=== PATIENT | male | born 1995 | race Two or more races ===

== ENCOUNTER 2016-05-25 08:55 | Emergency (ER) | payer OTHER ==
[2016-05-25 09:00] VITALS: BP 119/75; PULSE 78; RESP 20; TEMP 98.4; O2SAT 96
--- NOTE | 2016-05-25 09:02 | EDPHY ---
H & P Stated Complaint: PERIODIC BREATHING/SOB WAKING HIM UP AT NIGHT X 3 DAYS Time Seen by Provider: 05/25/16 09:02 - Personal History Current Tetanus/Diphtheria Vaccine: Yes - Medical/Surgical History Hx Asthma: Yes Hx Chronic Respiratory Disease: No Hx Diabetes: No Hx Cardiac Disease: No Hx Renal Disease: No Hx Cirrhosis: No Hx Alcoholism: No Hx HIV/AIDS: No Hx Splenectomy or Spleen Trauma: No Other PMH: ASTHMA - Social History Smoking Status: Never smoked Constitutional: Initial Vital Signs Temperature (C) 36.9 C 05/25/16 08:58 Heart Rate 78 05/25/16 08:58 Respiratory Rate 20 05/25/16 08:58 Blood Pressure 119/75 05/25/16 08:58 O2 Sat (%) 96 05/25/16 08:58 O2 Delivery Mode Room Air Allergies/Adverse Reactions: No Known Allergies Allergy (Verified 05/25/16 08:57) Home Medications: Medication Instructions Recorded Albuterol [Ventolin Hfa Inhaler] 200 puffs IH Q4 #1 mdi 05/25/16 Budesonide 90 Mcg INH [Pulmicort 60 puffs IH BID #1 mdi 05/25/16 90 Mcg Flexhaler (*)] Ipratropium [Atrovent Hfa (*)] 200 puffs IH Q4WA #1 mdi 05/25/16 Medical Decision Making ED Course/Re-evaluation: CHIEF COMPLAINT: Shortness of breath HISTORY OF PRESENT ILLNESS: The patient is a 20 y/o male, with a history of asthma, complaining of difficulty breathing that wakes him from sleep for the last few days. He reports since arriving in the [place], he has not usually required his asthma medications while here. Upon assessment, he has persistent mild chest tightness, but feels improved since waking this morning. He does not have access to any of his medications here. He does clarify that he generally wakes from sleep gasping for air and then his symptoms improve after waking. He endorses snoring, but does not know if he has sleep apnea. He denies fever, sore throat, or other symptoms. REVIEW OF SYSTEMS: A 10 point review of systems was performed and is negative with the exception of the elements mentioned in the history of present illness. PHYSICAL EXAM: HR, BP, O2 Sat, RR. Temp noted General Appearance: Alert, well hydrated, appropriate, and non-toxic appearing. Obese. Head: Atraumatic without scalp tenderness or obvious injury Eyes: Pupils equal, round, reactive to light and accommodation, EOMI, no trauma , no injection. Ears: Clear bilaterally, no perforation, normal landmarks Nose: Atraumatic, no rhinorrhea, clear. Throat: There is no erythema or exudates, no lesions, normal tonsils, mucus membranes moist. Neck: Supple, nontender, no lymphadenopathy. Respiratory: No retractions, no distress, no wheezes, and no accessory muscle use. Lungs are clear to auscultation bilaterally. Cardiovascular: Regular rate and rhythm, no murmurs, rubs, or gallops. Good capillary refill all extremities. Gastrointestinal: Abdomen is soft, nontender, non-distended, no masses, no rebound, no guarding, no peritoneal signs. Musculoskeletal: Normal active ROM of all extremities, atraumatic. Neurological: Alert, appropriate, and interactive. The patient has normal DTRs and non-focal cranial nerves, motor, sensory, and cerebellar exam. Skin: No rashes, good turgor, no nodules on palpation. Back acne. Past medical history: Asthma, obesity Past surgical history: denies Family history: noncontributory Social history: Recently returned from [facility]. [employer] student DIFFERENTIAL DIAGNOSIS: The differential diagnosis for the patient's shortness of breath included but was not limited to sleep apnea, asthma exacerbation, pneumonia, myocardial infarction, acute mountain sickness, high altitude pulmonary edema, congestive heart failure, and pulmonary embolus. MEDICAL DECISION MAKING: This is an obese 20 y/o male with a history of asthma presenting with multiple episodes of short-lived dyspnea that wake him from sleep. His asthma is usually controlled without medications while in [place] and he reports this dyspnea feels different as it is not persistent. His story is more consistent with obstructive sleep apnea rather than an asthma exacerbation. His lungs are clear. Plan for discharge with scripts for his inhalers and referral to pulmonology for follow up. Strict return precautions given. He is comfortable with this plan. Departure - Departure Disposition: Home, Routine, Self-Care Clinical Impression: Sleep apnea Qualifiers: Sleep apnea type: obstructive Qualified Code(s): G47.33 - Obstructive sleep apnea (adult) (pediatric) Asthma Qualifiers: Asthma severity: mild intermittent Asthma complication type: uncomplicated Qualified Code(s): J45.20 - Mild intermittent asthma, uncomplicated Condition: Good Instructions: Asthma (ED), Snoring (ED) Additional Instructions: 1. Use inhalers as prescribed when needed for persistent shortness of breath. 2. Follow up with a primary care provider or seconds handler to be evaluated for sleep apnea. 3. Return to the ED for any worsening of condition. Referrals: NONE *PRIMARY CARE P,. [Primary Care Provider] - As per Instructions [facility]] - As per Instructions Jono Batista MD [Medical Doctor] - As per Instructions Prescriptions: Albuterol [Ventolin Hfa Inhaler] 200 puffs IH Q4 #1 mdi Budesonide 90 Mcg INH [Pulmicort 90 Mcg Flexhaler (*)] 60 puffs IH BID #1 mdi Ipratropium [Atrovent Hfa (*)] 200 puffs IH Q4WA #1 mdi Report Scribed for: Josue Marks Report Scribed by: Cassidy Apodaca Date of Report: 05/25/16 Time of Report: 09:03
== END 2016-05-25 09:28 | disposition home or self-care (01) ==
DX: J45.20 Mild intermittent asthma, uncomplicated (principal); G47.33 Obstructive sleep apnea (adult) (pediatric)

== ENCOUNTER 2016-07-23 15:21 | Emergency (ER) | payer OTHER ==
[2016-07-23 15:27] VITALS: BP 145/70; PULSE 76; RESP 16; TEMP 97.9; O2SAT 95
--- NOTE | 2016-07-23 16:03 | EDPHY ---
H & P Time Seen by Provider: 07/23/16 15:55 HPI/ROS: CHIEF COMPLAINT: Rash on chest HISTORY OF PRESENT ILLNESS: Patient noticed slightly painful inflamed rash on his chest today. No fever. Crosses midline. No discharge. REVIEW OF SYSTEMS: No recent new contacts or soaps or lotions. No trouble breathing. PAST MEDICAL HISTORY: Asthma Social history: [employer] student General Appearance: Alert and conversant, cooperative. Folliculitis present on both sides of the patient's chest area approximately 10 x 10 cm. No abscess. No surrounding lymphangitis. Patient looks well and nontoxic Emergency Department course/MDM: Patient presents with folliculitis without abscess or systemic symptoms. I do not think this is likely to be zoster or allergic reaction. It is not itchy. Bactrim and Keflex, outpatient follow-up. Smoking Status: Never smoked Constitutional: Initial Vital Signs Temperature (C) 36.6 C 07/23/16 15:24 Heart Rate 76 07/23/16 15:24 Respiratory Rate 16 07/23/16 15:24 Blood Pressure 145/70 H 07/23/16 15:24 O2 Sat (%) 95 07/23/16 15:24 O2 Delivery Mode Room Air Allergies/Adverse Reactions: No Known Allergies Allergy (Verified 05/25/16 08:57) Home Medications: Medication Instructions Recorded Cephalexin [Keflex] 500 mg PO QID #28 cap 07/23/16 Sulfamethox/Tmp 800/160 mg 1 tab PO Q12 #14 tab 07/23/16 [Bactrim Ds] MDM/Departure - Depart Disposition: Home, Routine, Self-Care Clinical Impression: Folliculitis Condition: Good Instructions: Folliculitis (ED) Prescriptions: Cephalexin [Keflex] 500 mg PO QID #28 cap Sulfamethox/Tmp 800/160 mg [Bactrim Ds] 1 tab PO Q12 #14 tab Referrals: [facility] [Clinic] - As per Instructions
== END 2016-07-23 16:19 | disposition home or self-care (01) ==
DX: L73.9 Follicular disorder, unspecified (principal); J45.909 Unspecified asthma, uncomplicated

== ENCOUNTER 2016-08-29 19:53 | Emergency (ER) | payer OTHER ==
--- NOTE | 2016-08-29 20:25 | EDPHY ---
H & P Time Seen by Provider: 08/29/16 20:14 HPI/ROS: CHIEF COMPLAINT: Medication reaction HISTORY OF PRESENT ILLNESS: The patient is a 20-year-old male, on Doxycycline for 1 week for acne, presenting with medication reaction. While on the medication the patient developed light sensitivity and redness in both eyes. He felt more fatigued than usual and complained of a dry mouth. He stopped taking the medication two days ago. His eyes improved and his mouth no longer felt dry. He continues to feel more fatigued than usual. He states his acne has improved. He has no other complaints at this time. REVIEW OF SYSTEMS: A comprehensive 10 point review of systems is otherwise negative aside from elements mentioned in the history of present illness. Past Medical/Surgical History: Denies. Social History: [employer] student. Smoking Status: Never smoked Physical Exam: General Appearance: Alert, pleasant Eyes: Pupils equal and round, bilateral conjunctival injection, worse on left. ENT, Mouth: Mucous membranes moist Neck: Normal inspection Respiratory: Lungs are clear to auscultation Cardiovascular: Regular rate and rhythm Gastrointestinal: Abdomen is soft and non-tender Neurological: A&O, nonfocal, normal gait Skin: Warm and dry, no rash Extremities: Nontender, no pedal edema Psychiatric: Mood and affect normal Constitutional: Initial Vital Signs Temperature (C) 36.8 C 08/29/16 19:54 Heart Rate 84 08/29/16 19:54 Respiratory Rate 16 08/29/16 19:54 Blood Pressure 114/77 08/29/16 19:54 O2 Sat (%) 98 08/29/16 19:54 O2 Delivery Mode Room Air Allergies/Adverse Reactions: No Known Allergies Allergy (Verified 05/25/16 08:57) Home Medications: Medication Instructions Recorded Doxycycline Hyclate 08/29/16 Departure - Departure Disposition: Home, Routine, Self-Care Clinical Impression: Medication reaction Qualifiers: Encounter type: initial encounter Qualified Code(s): T88.7XXA - Unspecified adverse effect of drug or medicament, initial encounter Condition: Good Instructions: Antibiotic Medication Allergy (ED) Additional Instructions: Stop taking the Doxycycline. Followup with your dry house wheeler. You have been referred to a primary care physician below, please call to arrange a followup appointment as necessary. Referrals: Annette Allen MD [Medical Doctor] - As per Instructions (Primary Care Physician) Report Scribed for: Debby Green Report Scribed by: Rochelle Osorio Date of Report: 08/29/16 Time of Report: 20:25 Physician Review and Approval Statement: 08/29/16 20:25 Portions of this note were transcribed by a medical director/head team physician. I personally performed the history, physical exam, and medical decision-making; and confirmed the accuracy of the information in the transcribed note.
[2016-08-29 20:55] VITALS: BP 123/70; PULSE 88; RESP 20; TEMP 97.9; O2SAT 95
== END 2016-08-29 20:55 | disposition home or self-care (01) ==
DX: R53.83 Other fatigue (principal); T36.4X5A Adverse effect of tetracyclines, initial encounter
CPT/HCPCS: 82947-QW

== ENCOUNTER 2016-11-29 10:13 | Emergency (ER) | payer OTHER ==
[2016-11-29 10:19] VITALS: BP 109/56; PULSE 80; RESP 18; TEMP 97.9; O2SAT 96
--- NOTE | 2016-11-29 11:36 | EDPHY ---
H & P Time Seen by Provider: 11/29/16 10:45 HPI/ROS: CHIEF COMPLAINT: Left ankle injury HISTORY OF PRESENT ILLNESS: 21-year-old male presents to the emergency department with injury to his left ankle. The patient was playing soccer last night at 2300 and somehow rolled his left ankle. He tried to continue to play but complained of pain in his left ankle. Denies any other trauma or injury. ROS: Denies numbness or tingling in his toes, pain in his left calf or knee. Past Medical/Surgical History: Asthma Social History: [employer] student Smoking Status: Never smoked Physical Exam: Examination of the left ankle reveals mild swelling over the lateral malleolus. He has reproducible pain with palpation over the lateral malleolus and along the distal fibula. No palpable crepitus or other bony abnormality. No obvious ligament instability. Nontender to palpate over the medial malleolus. Full dorsi and plantar flexion. Calf is nontender. Achilles tendon is intact. Full range of motion of his left knee. Full range of motion of the right lower extremity. No abrasions or puncture wounds. Constitutional: Initial Vital Signs Temperature (C) 36.6 C 11/29/16 10:17 Heart Rate 80 11/29/16 10:17 Respiratory Rate 18 11/29/16 10:17 Blood Pressure 109/56 L 11/29/16 10:17 O2 Sat (%) 96 11/29/16 10:17 O2 Delivery Mode Room Air Allergies/Adverse Reactions: No Known Allergies Allergy (Verified 11/29/16 10:34) Home Medications: Medication Instructions Recorded NK [No Known Home Meds] 11/29/16 MDM/Departure - MDM Imaging Results: Imaging Impressions Ankle X-Ray 11/29/16 11:13 Impression: Negative. No acute fracture. Imaging: I viewed and interpreted images myself Procedures: Patient was placed in Velcro ankle stirrup splint and examined post application in good placement with normal MECHANICAL APPLICATIONS ENGINEER. ED Course/Re-evaluation: 21-year-old male presents to the emergency department with left ankle injury. X -rays reveal no fractures. He was placed in Velcro ankle stirrup splint and given orthopedic referral. - Depart Disposition: Home, Routine, Self-Care Clinical Impression: Left ankle sprain Qualifiers: Encounter type: initial encounter Involved ligament of ankle: unspecified ligament Qualified Code(s): S93.402A - Sprain of unspecified ligament of left ankle, initial encounter Condition: Good Instructions: Ankle Sprain (ED), Ankle Stirrup Splint (ED) Additional Instructions: Weightbear as tolerated. Ibuprofen 600 mg every 8 hours as needed for pain. Follow up with orthopedic surgeon in 1 week to recheck. Referrals: Aleksander Jimenes MD [Medical Doctor] - 5-7 days, call for appt. (Orthopedic surgeon on-call)
== END 2016-11-29 11:45 | disposition home or self-care (01) ==
DX: S93.402A Sprain of unspecified ligament of left ankle, initial encounter (principal); J45.909 Unspecified asthma, uncomplicated; X50.9XXA Other and unspecified overexertion or strenuous movements or postures, initial encounter; Y93.66 Activity, soccer

== ENCOUNTER 2016-12-11 22:55 | Emergency (ER) | payer OTHER ==
--- NOTE | 2016-12-11 23:38 | EDPHY ---
H & P Stated Complaint: L ankle inj Time Seen by Provider: 12/11/16 23:38 HPI/ROS: HPI: This is a 21-year-old male who presents with Chief Complaint: Left ankle injury Location: Left ankle Quality: Injury Duration: 30 minutes prior to arrival Signs and Symptoms: No bleeding, no radiation, no numbness, no weakness, no tingling, no incontinence, + decreased range of motion, + swelling, + pain Timing: Acute Severity: Moderate Context: Patient was playing soccer approximately 1 minute into the game; when he accidentally rolled his ankle; abdirizak it; he heard something snap and felt immediate pain. He is able to partially bear weight on his toe. He was seen in the emergency room 2 weeks ago with the exact same injury. He has not taken any [id number] medications or applied ice. He has increased pain with weight-bearing. He describes the pain is constant and moderate in nature. Modifying Factors: None Comment: ROS: see HPI Constitutional: No fever, no chills, no weight loss Eyes: No blurred vision Respiratory: No shortness of breath, no cough Cardiovascular: No chest pain Gastrointestinal: No nausea, no vomiting no diarrhea Genitourinary: No dysuria Extremities: No myalgias Neurologic: No weakness, no numbness Skin: No rashes Hematologic: No bruising, no bleeding MEDICAL/SURGICAL/SOCIAL HISTORY: Medical history: Asthma Surgical history: Denies Social history: College student CONSTITUTIONAL: Obese polite young adult male, awake and alert, no obvious distress HEENT: Atraumatic and normocephalic, PERRL, EOMI. Tympanic membranes clear. Oropharynx clear, no exudate and moist pink mucosa. Airway patent. No lymphadenopathy. No meningismus. Cardiovascular: Normal S1/S2, regular rate, regular rhythm, without murmur rub or gallop. PULMONARY/CHEST: Symmetrical and nontender. Clear to auscultation bilaterally. Good air movement. No accessory muscle usage. ABDOMEN: Soft, nondistended, nontender, no rebound, no guarding, no peritoneal signs, no masses or organomegaly. No CVAT. EXTREMITIES: 2/2 pulses, strength 5/5, Left Ankle; moderate soft tissue swelling over the medial malleolus; Plantar flexion to 50, dorsiflexion to 20 . Foot inversion to 35 degree. +pain Anterior talofibular ligament. + pain Calcaneofibular ligament, no pain posterior talofibular ligament, no pain posterior inferior tibiofibular ligament Achilles tendon intact. Light touch sensation intact. no deformities, no clubbing, no cyanosis or edema. NEUROLOGICAL: no focal neuro deficits. GCS 15. SKIN: Warm and dry, no erythema. no rash. Good capillary refill. Source: Patient Exam Limitations: No limitations - Personal History Current Tetanus/Diphtheria Vaccine: Yes Tetanus Vaccine Date: 2014 - Medical/Surgical History Hx Asthma: Yes Hx Chronic Respiratory Disease: No Hx Diabetes: No Hx Cardiac Disease: No Hx Renal Disease: No Hx Cirrhosis: No Hx Alcoholism: No Hx HIV/AIDS: No Hx Splenectomy or Spleen Trauma: No Other PMH: ASTHMA - Social History Smoking Status: Never smoked Constitutional: Initial Vital Signs Temperature (C) 36.6 C 12/11/16 22:58 Heart Rate 112 H 12/11/16 22:58 Respiratory Rate 18 12/11/16 22:58 Blood Pressure 131/60 H 12/11/16 22:58 O2 Sat (%) 96 12/11/16 22:58 O2 Delivery Mode Room Air Allergies/Adverse Reactions: No Known Allergies Allergy (Verified 12/11/16 23:00) Home Medications: Medication Instructions Recorded NK [No Known Home Meds] 11/29/16 Medical Decision Making - Diagnostics Imaging Results: Imaging Impressions Ankle X-Ray 12/11/16 23:04 Impression: Soft tissue swelling, with no acute fracture. Procedures: Procedure: Splint placement. A left ankle stirrup splint was applied by the Emergency Room avionics test technician. After application of the splint I returned and re-examined the patient. The splint was adequately immobilizing the joint and distal to the splint the patient's circulation and sensation was intact. ED Course/Re-evaluation: Left ankle x-ray ordered' show soft tissue swelling but no fracture. Given ibuprofen. Appears to be grade 2 sprain; 2nd occurrence Placed in ankle stirrup splint; given crutches; partial weight-bearing as tolerated; with orthopedic follow-up Rice therapy No signs of neurovascular compromise/tenting of skin/compartment syndrome/ extremities and joints examined above and below area of concern and are neurovascularly intact. Differential Diagnosis: ED differential diagnosis includes sprain, fracture, nerve injury, ligament injury. Departure - Departure Disposition: Home, Routine, Self-Care Clinical Impression: Grade 2 ankle sprain Qualifiers: Encounter type: initial encounter Laterality: left Qualified Code(s): S93.402A - Sprain of unspecified ligament of left ankle, initial encounter Condition: Good Instructions: Ankle Sprain (ED), Ankle Stirrup Splint (ED) Additional Instructions: Wear ankle splint continuously except at night while you sleep and to take a bath until pain free or you follow-up with Orthopedics. Use crutches to immobilize left lower extremity; partial weight-bearing as tolerated. Take ibuprofen 600-800 mg every 6-8 hours with food as needed for pain and inflammation. Apply ice for 30 minutes at a time; 2-3 times per day for the next 1-2 days. Follow up with Orthopedics in 5-7 days at which time they will evaluate and recommend with you if conservative management versus further diagnostic imaging is indicated. The x-rays obtained in the emergency department today demonstrate no evidence of an obvious fracture. Sometimes fractures are not obvious on the initial set of x-rays performed in the ED. For this reason, you should have repeat x-rays performed in 7-10 days if you are having any pain exclude the possibility of an occult fracture. Referrals: Aleksander Jimenes MD [Medical Doctor] - As per Instructions
[2016-12-11] MEDS ORDERED: IBUPROFEN 800 MG TAB PO ONE (23:44)
[2016-12-12 00:05] VITALS: BP 119/67; PULSE 100; RESP 16; TEMP 98.4; O2SAT 97
== END 2016-12-12 00:03 | disposition home or self-care (01) ==
DX: S93.402A Sprain of unspecified ligament of left ankle, initial encounter (principal); J45.909 Unspecified asthma, uncomplicated; X50.9XXA Other and unspecified overexertion or strenuous movements or postures, initial encounter; Y99.8 Other external cause status; Y93.66 Activity, soccer
CPT/HCPCS: L4350

== ENCOUNTER 2016-12-12 09:29 | Emergency (ER) | payer OTHER ==
--- NOTE | 2016-12-12 09:55 | EDPHY ---
General Narrative: CHIEF COMPLAINT: Back pain HISTORY OF PRESENT ILLNESS: Patient complains of low back pain of 10 days duration. This started after an indoor soccer game. It is midline of the lumbar spine and into the distal thoracic spine. It has been constant duration but does wax and wane in severity. Occasionally it is mild, currently severe. Worse with movement. Does not radiate. There is no lower extremity numbness, tingling, weakness or pain. No saddle anesthesia. No incontinence of bowel or bladder. No retention of bowel or bladder. No direct injury. He has had 2 ankle sprains in the same timeframe. He feels that these have exacerbated it. He was seen here in this facility yesterday for left ankle sprain but did not mention the back pain to the provider. No other associated complaints or modifying factors. ESTABLISHED ORTHOPEDIST: None REVIEW OF SYSTEMS: Ten systems reviewed and are negative unless otherwise noted in the HPI PAST MEDICAL HISTORY: None PAST SURGICAL HISTORY: None SOCIAL HISTORY: [place] at [employer] [facility]. Originally from [facility] FAMILY HISTORY: Noncontributory EXAMINATION General Appearance: Alert, no distress Cardiovascular: Pulses normal throughout. Symmetric DP and PT pulses 2+. Brisk cap refill Neurological: A&O, sensory symmetric, strength symmetric, steady but antalgic gait. No foot drop. Strength is 5/5 in the lower extremities. Patellar reflexes symmetric. Back: Tenderness of the lumbar and lower thoracic spine. No crepitus, step- off or deformity. No palpable abscess. No warmth or cellulitis. Range of motion intact but painful. Skin: Warm and dry, no rash. No petechiae or purpura Extremities: Mild tenderness of the left ankle. Range of motion intact. No crepitus or deformity. No midfoot tenderness range of motion is symmetric in the lower extremities. Psychiatric: Mood and affect normal DIFFERENTIAL DIAGNOSES: Including but not limited to sprain, strain, fracture, spondylolisthesis MDM: 9:55 a.m. Low back pain of 10 days duration with midline tenderness. No numbness. No tingling. No weakness. No incontinence. Given his mechanism with midline tenderness, I have ordered x-ray of the lumbar spine and thoracic spine. 10:50 a.m. X-rays have been reviewed with the patient. No acute fractures. There are some degenerative changes and disc space narrowing as discussed and documented. He is neuro intact. There is no evidence of acute cord compression. I will discharge him home with short course of muscle relaxants steroid therapy. I will provide him with primary care physician to contact to establish with in follow-up for further care and MRI should he warranted. We discussed ED precautions for worsening pain, weakness, numbness, tingling, incontinence. He is comfortable this plan and discharged home in stable condition. Case discussed with Dr. Chavez. ED Precautions: Worsening pain. Erythema, edema, cyanosis, pallor, paresthesia or anesthesia. - Diagnostics Imaging Results: Imaging Impressions Lumbar Spine X-Ray 12/12/16 09:55 Impression: Mild degenerative change at L5-S1. Thoracic Spine X-Ray 12/12/16 09:55 Impression: Minimal disk space narrowing at T8-T9 of uncertain clinical significance. Correlation with the level of symptoms is recommended. - History Smoking Status: Never smoked - Objective Vital Signs: Initial Vital Signs Temperature (C) 97.7 F 12/12/16 09:31 Heart Rate 60 12/12/16 09:31 Respiratory Rate 18 12/12/16 09:31 Blood Pressure 123/64 H 12/12/16 09:31 O2 Sat (%) 98 12/12/16 09:31 O2 Delivery Mode Room Air Allergies/Adverse Reactions: No Known Allergies Allergy (Verified 12/12/16 09:31) Home Medications: Medication Instructions Recorded Cyclobenzaprine [Flexeril 10 MG 10 mg PO TID PRN #11 tab 12/12/16 (*)] predniSONE [Deltasone] 60 mg PO DAILY #15 tablet 12/12/16 Departure - Departure Disposition: Home, Routine, Self-Care Clinical Impression: Acute low back pain Qualifiers: Back pain laterality: unspecified Sciatica presence: without sciatica Qualified Code(s): M54.5 - Low back pain Condition: Good Instructions: Low Back Strain (ED), Acute Low Back Pain (ED), Lower Back Exercises (ED) Additional Instructions: 1. Medications as prescribed to completion 2. Follow up with primary care physician 3. ED precautions as discussed Referrals: NONE *PRIMARY CARE P,. [Primary Care Provider] - As per Instructions Serge Brian MD [Medical Doctor] - As per Instructions Prescriptions: Cyclobenzaprine [Flexeril 10 MG (*)] 10 mg PO TID PRN #11 tab PRN Reason: Spasms predniSONE [Deltasone] 60 mg PO DAILY #15 tablet
[2016-12-12 11:08] VITALS: BP 128/57; PULSE 62; RESP 16; TEMP 98.2; O2SAT 97
== END 2016-12-12 11:08 | disposition home or self-care (01) ==
DX: M54.5 Low back pain (principal)

== ENCOUNTER 2016-12-13 23:19 | Emergency (ER) | payer OTHER ==
[2016-12-13 23:31] VITALS: RESP 16; TEMP 97.7; O2SAT 96
[2016-12-13] MEDS ORDERED: KETOROLAC 30 MG/1 ML SDV IM ONE (23:35)
--- NOTE | 2016-12-13 23:38 | EDPHY ---
H & P Stated Complaint: seen for same yest, mid low back pain x 10 days, unable to sleep HPI/ROS: Chief complaint: Back pain History of present illness: This is a 21-year-old male who returns to the emergency department for low back pain. He was seen yesterday for the same. He reports he injured his back 10 days ago while playing soccer. He has had persistent pain since then. He was seen yesterday had x-rays of his thoracic and lumbar spine which were negative. He was started on Flexeril and prednisone which he has been taking but pain persists, he states he is having trouble sleeping because of the pain. He denies any new trauma since being seen yesterday. No new signs or symptoms including no worsening of pain. No radiation of pain. No neurologic symptoms such as paresthesias, weakness or paralysis or bowel or bladder dysfunction. He is not using any other medications to treat the pain. Review of systems: A 10 point review of systems was obtained and other than described above was negative - Personal History Tetanus Vaccine Date: 2014 - Medical/Surgical History Hx Asthma: Yes Hx Chronic Respiratory Disease: No Hx Diabetes: No Hx Cardiac Disease: No Hx Renal Disease: No Hx Cirrhosis: No Hx Alcoholism: No Hx HIV/AIDS: No Hx Splenectomy or Spleen Trauma: No Other PMH: ASTHMA - Social History Smoking Status: Never smoked - Physical Exam Exam: General Appearance: Alert, no distress. Eyes: Pupils equal and round no pallor or injection. ENT, Mouth: Mucous membranes moist. Respiratory: There are no retractions, lungs are clear to auscultation. Cardiovascular: Regular rate and rhythm. Gastrointestinal: Abdomen is soft and non tender, no masses, bowel sounds normal. Neurological: Alert and oriented x4. Cranial nerves 2-12 grossly intact. Strength and sensation intact and symmetrical. Patellar and Achilles reflexes 2 + bilaterally. Skin: Warm and dry, no rashes. Musculoskeletal: Neck is supple non tender. Diffuse tenderness to the lower thoracic and lumbar spine both midline and paraspinally bilaterally. No crepitus, bony deformity or step-off appreciated. Extremities are symmetrical, full range of motion. Psychiatric: Patient is oriented X 3, there is no agitation. Constitutional: Initial Vital Signs Temperature (C) 36.5 C 12/13/16 23:29 Heart Rate 58 L 12/13/16 23:29 Respiratory Rate 16 12/13/16 23:29 Blood Pressure 137/52 H 12/13/16 23:29 O2 Sat (%) 96 12/13/16 23:29 O2 Delivery Mode Room Air Allergies/Adverse Reactions: No Known Allergies Allergy (Verified 12/13/16 23:32) Home Medications: Medication Instructions Recorded Cyclobenzaprine [Flexeril 10 MG 10 mg PO TID PRN #11 tab 12/12/16 (*)] predniSONE [Deltasone] 60 mg PO DAILY #15 tablet 12/12/16 Ibuprofen 800 mg PO Q8HRS #10 tablet 12/13/16 Medical Decision Making ED Course/Re-evaluation: Patient seen under the supervision of my secondary supervising physician Dr. Junior Fallon. Patient returns to the emergency department for persistent back pain that he has had for 10 days. He is nontoxic. He is neurologically intact. X-rays from yesterday were reviewed. He is taking prednisone and Flexeril but no actual pain medications. He is given Toradol IM. He is asked to begin ibuprofen. Home care is discussed. Return precautions are given. Patient voiced understanding and agreement with plan. Differential Diagnosis: Included but not limited to contusion, sprain or strain, bony fracture, herniated intervertebral disc, unlikely spinal cord disorder - Data Points Medications Given: Discontinued Medications Ketorolac Tromethamine (Toradol) 60 mg IM EDNOW ONE Stop: 12/13/16 23:36 Last Admin: 12/13/16 23:40 Dose: 60 mg Departure - Departure Disposition: Home, Routine, Self-Care Clinical Impression: Back pain Qualifiers: Back pain location: low back pain Chronicity: acute Back pain laterality: unspecified Sciatica presence: without sciatica Qualified Code(s): M54.5 - Low back pain Condition: Good Instructions: Back Pain (ED) Additional Instructions: Follow-up with a primary care doctor for recheck If symptoms worsen or new symptoms develop return to the emergency room for recheck Referrals: NONE *PRIMARY CARE P,. [Primary Care Provider] - As per Instructions Prescriptions: Ibuprofen 800 mg PO Q8HRS #10 tablet
[2016-12-14 00:03] VITALS: BP 113/58; PULSE 57
== END 2016-12-14 00:02 | disposition home or self-care (01) ==
DX: M54.5 Low back pain (principal); J45.909 Unspecified asthma, uncomplicated
CPT/HCPCS: J1885

== ENCOUNTER 2016-12-18 11:43 | Emergency (ER) | payer OTHER ==
[2016-12-18 11:53] VITALS: BP 110/61; PULSE 76; RESP 16; TEMP 98.4; O2SAT 98
== END 2016-12-18 12:17 | disposition left against medical advice (07) ==
DX: Z53.21 Procedure and treatment not carried out due to patient leaving prior to being seen by health care provider (principal)

== ENCOUNTER 2016-12-18 13:20 | Emergency (ER) | payer OTHER ==
[2016-12-18 13:33] VITALS: BP 136/84; PULSE 84; RESP 16; TEMP 98.1; O2SAT 97
--- NOTE | 2016-12-18 14:30 | EDPHY ---
H & P Time Seen by Provider: 12/18/16 14:17 HPI/ROS: CHIEF COMPLAINT: Nasal congestion HISTORY OF PRESENT ILLNESS: 21-year-old male presents with nasal congestion. For the last week, he feels a frequent need to exhale through his nose forcefully to clear his nasal passages. He denies sinus drainage or runny nose. No other URI symptoms. He also complains low back pain, persistent since his last emergency department visit 1 week ago. Taking ibuprofen with some relief. He has a follow-up appointment tomorrow. REVIEW OF SYSTEMS: Constitutional: No fever, no chills Eyes: No visual changes ENT: No sore throat Respiratory: No cough, no shortness of breath Cardiac: No chest pain Gastrointestinal: No nausea, no vomiting, no abdominal pain Genitourinary: no dysuria Musculoskeletal: No myalgias Skin: No rash Neurological: No headache Psychiatric: No depression Past Medical/Surgical History: Denies Social History: Student at [employer] - [place] Smoking Status: Never smoked Physical Exam: General Appearance: Alert, pleasant Eyes: Pupils equal and round, no conjunctivalinjection ENT, Mouth: bilateral nares-normal inspection using otoscope, Mucous membranes moist, no pharyngeal erythema Neck: Normal inspection Back: Right paraspinous tenderness, no midline tenderness Neurological: A&O, nonfocal, normal gait Skin: Warm and dry Extremities: normal inspection Psychiatric: Mood and affect normal Constitutional: Initial Vital Signs Temperature (C) 36.7 C 12/18/16 13:32 Heart Rate 84 12/18/16 13:32 Respiratory Rate 16 12/18/16 13:32 Blood Pressure 136/84 H 12/18/16 13:32 O2 Sat (%) 97 12/18/16 13:32 O2 Delivery Mode Room Air Allergies/Adverse Reactions: No Known Allergies Allergy (Verified 12/18/16 11:50) Home Medications: Medication Instructions Recorded NK [No Known Home Meds] 12/18/16 Medical Decision Making ED Course/Re-evaluation: This patient presents with nasal congestion. He will use a Flonase. He does not get better he will follow up with ENT. He also complains of low back pain, declines further evaluation or medications today. Departure - Departure Disposition: Home, Routine, Self-Care Clinical Impression: Nasal congestion Condition: Good Instructions: Sinusitis (ED) Additional Instructions: Use a humidifier. Go to a pharmacy and buy Flonase. Use Flonase as directed on the bottle. Followup with ENT if you are not better in 10-14 days. Referrals: NONE *PRIMARY CARE P,. [Primary Care Provider] - As per Instructions
== END 2016-12-18 14:20 | disposition home or self-care (01) ==
DX: R09.81 Nasal congestion (principal)

== ENCOUNTER 2016-12-25 13:46 | Emergency (ER) | payer OTHER ==
[2016-12-25 13:53] VITALS: RESP 16; TEMP 98.1
--- NOTE | 2016-12-25 15:37 | EDPHY ---
H & P Stated Complaint: low back pain for 3 weeks, getting worse. Time Seen by Provider: 12/25/16 15:34 HPI/ROS: CHIEF COMPLAINT: Low back pain x3 weeks HISTORY OF PRESENT ILLNESS: 21-year-old male complaining of waxing waning low back pain for the past 3 weeks after playing soccer. He has been evaluated in the emergency department and that multiple outpatient urgent cares for similar. He has an appointment for his physical therapy intake in 10 days. No history of MRI. No incontinence. No retention. No saddle anesthesia. No radiculopathy. No abdominal pain. No fever or chills. No flu-like symptoms. No chest pain. No recent dental work or surgical procedures. No dyspnea. No direct trauma. In the emergency department at prior visit he has had x-rays of the spine which were unremarkable. He has not had pain relief with 800 mg ibuprofen. REVIEW OF SYSTEMS: A ten point review of systems was performed and is negative with the exception of the items mentioned in the HPI PAST MEDICAL & SURGICAL HISTORY: No pertinent medical or surgical history SOCIAL HISTORY:no IV drug use PHYSICAL EXAM (Prior to examination, patient consented to physical exam, hands were washed and my usual and customary physical exam procedures followed) 1) GENERAL: Well-developed, well-nourished, alert and oriented. Appears uncomfortable when he needs to sit removed 2) HEAD: Normocephalic, atraumatic 3) HEENT: Pupils equal, round, reactive to light bilaterally. Sclera anicteric. Nasopharynx, oropharynx, clear, no lesions. 4) NECK: Full range of motion, no meningeal signs. 5) LUNGS: Clear auscultation bilaterally, no wheezes, no rhonchi, no retractions. 6) HEART: Regular rate and rhythm, no murmur, no heave, no gallop. 7) ABDOMEN: No guarding, no rebound, no focal tenderness, negative McBurney's, negative Martinez's, negative Rovsing's, negative peritoneal sign, 8) MUSCULOSKELETAL: Moving all extremities, no focal areas of tenderness, no obvious trauma. No peripheral edema or discoloration. 9) BACK: tender to palpation paraspinous lumbar muscle. No CVA tenderness, no midline vertebral tenderness, no fluctuance, no step-off, no obvious trauma, no visual or palpable abnormality. Patella, Achilles reflexes intact to bilateral strength 5/5 10) SKIN: No rash, no petechiae. 11) NEURO: Awake, alert, and oriented to person, place and time. Answers questions appropriately. There were no obvious focal neurologic abnormalities. No cerebellar dysfunction. Normal steady gait. lower extremities bilaterally with strength 5 / 5, reflexes 2+.. DIFFERENTIAL DIAGNOSIS: In no particular order, including but not limited to, fracture, sprain/strain, cauda equina, spinal infectious etiology. MEDICAL DECISION MAKING Lower index of suspicion for cauda equina, epidural abscess, epidural hematoma, lumbar myositis, diskitis, as the patient is neurologically intact in the lower extremities, has patella and Achilles reflexes intact and equal bilaterally, has no neurologic deficits, no incontinence, no retention, no midline pain, no fluctuance, afebrile, no flulike symptoms. Pain may be secondary to muscular strain, may be secondary to discogenic etiology. At this point I do not identify definitive indication for emergent MRI, however patient may necessitate this on an outpatient basis. I have recommended patient follow up with on-call Neurosurgery, also recommend he keep his physical therapy appointment. And given her prescription for Flexeril and Medrol Dosepak. He may continue the ibuprofen with usual and customary NSAID precautions instructions. Patient given acute back pain precautions. Patient verbalizes understanding of discharge instructions. I believe them be competent decision- makers. All questions and concerns have been addressed by me. Ample opportunity for questions have been provided . The patient understands that this diagnosis is provisional and can never be 100% accurate. Usual and customary warnings were given concerning the clinical impression and all the patient's questions were answered. The patient was instructed to return to the emergency department should her symptoms worsen or return, or develop any new symptoms, otherwise to followup as directed in discharge instructions.Care of patient under supervision of [secondary] supervising physician Dr Green . - Personal History Current Tetanus Diphtheria and Acellular Pertussis (TDAP): Yes Tetanus Vaccine Date: 2014 - Medical/Surgical History Hx Asthma: Yes Hx Chronic Respiratory Disease: No Hx Diabetes: No Hx Cardiac Disease: No Hx Renal Disease: No Hx Cirrhosis: No Hx Alcoholism: No Hx HIV/AIDS: No Hx Splenectomy or Spleen Trauma: No Other PMH: ASTHMA - Social History Smoking Status: Never smoked Constitutional: Initial Vital Signs Temperature (C) 36.7 C 12/25/16 13:49 Heart Rate 88 12/25/16 13:49 Respiratory Rate 16 12/25/16 13:49 Blood Pressure 118/46 L 12/25/16 13:49 O2 Sat (%) 97 12/25/16 13:49 O2 Delivery Mode Room Air Allergies/Adverse Reactions: No Known Allergies Allergy (Verified 12/18/16 11:50) Home Medications: Medication Instructions Recorded Cyclobenzaprine [Flexeril 10 MG 10 mg PO TID #15 tab 12/25/16 (RX)] methylPREDNISolone [Medrol Dose 4 mg PO DAILY #1 ea 12/25/16 Estrada] Departure - Departure Disposition: Home, Routine, Self-Care Clinical Impression: Low back pain Qualifiers: Chronicity: acute Back pain laterality: bilateral Sciatica presence: without sciatica Qualified Code(s): M54.5 - Low back pain Condition: Good Instructions: Acute Low Back Pain (ED) Additional Instructions: Seek medical attention if you develop new or worsening pain, if you develop bladder or bowel dysfunction, numbness around your perineum, foot drop, or any other symptoms that concern you. Referrals: Raghu Carter MD [Medical Doctor] - 5-7 days, call for appt. Stand Alone Forms: School Excuse Prescriptions: Cyclobenzaprine [Flexeril 10 MG (RX)] 10 mg PO TID #15 tab methylPREDNISolone [Medrol Dose Estrada] 4 mg PO DAILY #1 ea
[2016-12-25 15:49] VITALS: BP 122/88; PULSE 73; O2SAT 94
== END 2016-12-25 15:47 | disposition home or self-care (01) ==
DX: M54.5 Low back pain (principal); J45.909 Unspecified asthma, uncomplicated

== ENCOUNTER 2017-03-14 13:53 | Emergency (ER) | payer OTHER ==
[2017-03-14 13:59] VITALS: BP 156/86; PULSE 101; RESP 20; TEMP 98.6; O2SAT 97
--- NOTE | 2017-03-14 14:34 | EDPHY ---
H & P Stated Complaint: low back pain for 3 months, getting worse Time Seen by Provider: 03/14/17 14:10 HPI/ROS: CHIEF COMPLAINT: Acute exacerbation of chronic low back pain HISTORY OF PRESENT ILLNESS: The patient presents to the ED with complaints of a chronic exacerbation of low back pain. The patient denies any numbness or weakness in his legs. He denies bowel or bladder dysfunction. The patient reports a history of prior low back pain which improved initially with physical therapy several months ago. The patient denies any fever, IV drug use or history of malignancy. The patient woke up with an acute exacerbation of his symptoms today. REVIEW OF SYSTEMS: A comprehensive 10 point review of systems is otherwise negative aside from elements mentioned in the history of present illness. Source: Patient Exam Limitations: No limitations - Personal History Current Tetanus/Diphtheria Vaccine: Yes Current Tetanus Diphtheria and Acellular Pertussis (TDAP): Yes Tetanus Vaccine Date: 2014 - Medical/Surgical History Hx Asthma: Yes Hx Chronic Respiratory Disease: No Hx Diabetes: No Hx Cardiac Disease: No Hx Renal Disease: No Hx Cirrhosis: No Hx Alcoholism: No Hx HIV/AIDS: No Hx Splenectomy or Spleen Trauma: No Other PMH: ASTHMA - Social History Smoking Status: Never smoked - Physical Exam Exam: General Appearance: Alert, no distress Eyes: Pupils equal and round no pallor or injection ENT, Mouth: Mucous membranes moist Respiratory: There are no retractions, lungs are clear to auscultation Cardiovascular: Regular rate and rhythm Gastrointestinal: Abdomen is soft and nontender, no masses, bowel sounds normal Neurological: A&O, normal motor function, normal sensory exam, normal cranial nerves Skin: Warm and dry, no rashes Musculoskeletal: Tenderness to palpation noted at the left sacroiliac and along the paraspinal muscles Extremities: symmetrical, full range of motion Constitutional: Initial Vital Signs Temperature (C) 37 C 03/14/17 13:57 Heart Rate 101 H 03/14/17 13:57 Respiratory Rate 20 03/14/17 13:57 Blood Pressure 156/86 H 03/14/17 13:57 O2 Sat (%) 97 03/14/17 13:57 O2 Delivery Mode Room Air Allergies/Adverse Reactions: No Known Allergies Allergy (Verified 03/14/17 13:56) Home Medications: Medication Instructions Recorded Cyclobenzaprine [Flexeril 10 MG 10 mg PO TID PRN #15 tab 03/14/17 (*)] Lidocaine 5% [Lidoderm 5% Patch 1 ea TD DAILY #30 patch 03/14/17 (*)] Medical Decision Making ED Course/Re-evaluation: The patient presents to the ED for an acute exacerbation of low back pain and likely sacroiliitis. The patient is neurologically intact. He has no red flag warnings for low back pain. The patient will be advised to use lidocaine, Flexeril and NSAIDs. The patient will be advised to follow up with his physical therapist. He will be discharged home with customary aftercare instructions and return precautions. The patient is given the number of our on-call spine surgeon for any more severe symptoms, unimproved symptoms or other concerns. Differential Diagnosis: Differential diagnosis considered includes myofascial strain, sciatica, sacroiliitis Departure - Departure Disposition: Home, Routine, Self-Care Clinical Impression: Low back pain Condition: Good Instructions: Low Back Strain (ED), Acute Low Back Pain (ED) Additional Instructions: 1. Take Ibuprofen or Motrin 600 mg by mouth three times a day. 2. Flexeril as needed for muscle relaxation. 3. Lidocaine patches as prescribed. 4. Please follow up with physical therapist you have seen for further evaluation and management options of your low back pain. 5. Return to the ED for any numbness or weakness in her legs, fever, worsening symptoms or other concerns. 6. You have been referred to our web application dev specialist for any ongoing symptoms. 7. Lidocaine patches as prescribed Referrals: Merari Culver DO [Doctor of Osteopathy] - As per Instructions
== END 2017-03-14 14:52 | disposition home or self-care (01) ==
DX: M54.5 Low back pain (principal); J45.909 Unspecified asthma, uncomplicated

== ENCOUNTER 2017-05-20 01:11 | Emergency (ER) | payer OTHER ==
[2017-05-20] MEDS ORDERED: IPRATROPIUM/ALBUTEROL 3 ML DEYVIAL ONE (01:43)
[2017-05-20] MEDS ORDERED: IPRATROPIUM/ALBUTEROL 3 ML DEYVIAL IH ONE (01:44)
[2017-05-20] MEDS ORDERED: ALBUTEROL INH PREPACK MDI TAKEHOME ONE (02:44)
--- NOTE | 2017-05-20 02:44 | EDPHY ---
H & P Stated Complaint: DIFFICULTY TAKING A FULL BREATH Time Seen by Provider: 05/20/17 02:36 HPI/ROS: HPI The patient presents with mild shortness of breath which has been present for the last 2 days which started slowly and has been intermittent. The patient has a history of asthma which bothers him very rarely so that his albuterol inhaler has . He feels mild wheezing. He does not have any chest pain or leg swelling. His symptoms feel like his prior asthma exacerbations.. REVIEW OF SYSTEMS Constitutional: No fever, no chills. Eyes: No discharge. ENT: No sore throat. Cardiovascular: No chest pain, no palpitations. Respiratory: No cough, positive for shortness of breath. Gastrointestinal: No abdominal pain, no vomiting. Genitourinary: No hematuria. Musculoskeletal: No back pain. Skin: No rashes. Neurological: No headache. PMHx: History of asthma Soc Hx: College student PHYSICAL General Appearance: Alert, no distress Eyes: Pupils equal and round no pallor or injection ENT, Mouth: Mucous membranes moist Respiratory: There are no retractions, lungs are clear to auscultation Cardiovascular: Regular rate and rhythm Gastrointestinal: Abdomen is soft and non-tender, no masses, bowel sounds normal Neurological: A&O, moves all extremities Skin: Warm and dry, no rashes Musculoskeletal: Neck is supple non tender Extremities: symmetrical, full range of motion Psychiatric: Patient is oriented X 3, there is no agitation Source: Patient Exam Limitations: No limitations - Personal History Current Tetanus Diphtheria and Acellular Pertussis (TDAP): Yes Tetanus Vaccine Date: 2014 - Medical/Surgical History Hx Asthma: Yes Hx Chronic Respiratory Disease: No Hx Diabetes: No Hx Cardiac Disease: No Hx Renal Disease: No Hx Cirrhosis: No Hx Alcoholism: No Hx HIV/AIDS: No Hx Splenectomy or Spleen Trauma: No Other PMH: ASTHMA, ACNE - Social History Smoking Status: Heavy smoker Constitutional: Initial Vital Signs Temperature (C) 36.6 C 05/20/17 01:17 Heart Rate 109 H 05/20/17 01:17 Respiratory Rate 16 05/20/17 01:17 Blood Pressure 123/87 H 05/20/17 01:17 O2 Sat (%) 98 05/20/17 01:17 O2 Delivery Mode Room Air Allergies/Adverse Reactions: No Known Allergies Allergy (Verified 03/14/17 13:56) Home Medications: Medication Instructions Recorded Mari Johnson 05/20/17 Medical Decision Making Differential Diagnosis: This is a 21-year-old male with history of mild intermittent asthma who presents with mild shortness of breath associated with wheezing which is improved after receiving DuoNeb in the emergency department. On exam now, the patient has no wheezing present. Differential diagnosis includes asthma exacerbation, viral URI, doubt PE given no hypoxia, tachycardia, risk factors. The patient will be discharged with albuterol inhaler and given follow-up information for [facility]. - Data Points Medications Given: Discontinued Medications Albuterol Sulfate (Proventil Inh Prepack) 1 mdi TAKEHOME EDNOW ONE Stop: 05/20/17 02:45 Last Admin: 05/20/17 03:01 Dose: 1 mdi Albuterol/Ipratropium (Duoneb) 3 ml IH EDNOW ONE Stop: 05/20/17 01:45 Last Admin: 05/20/17 01:46 Dose: 3 ml Departure - Departure Disposition: Home, Routine, Self-Care Clinical Impression: Exacerbation of asthma Qualifiers: Asthma severity: mild Asthma persistence: intermittent Qualified Code(s): J45.21 - Mild intermittent asthma with (acute) exacerbation Condition: Good Instructions: Albuterol (By breathing), Asthma (ED) Additional Instructions: Please return to the emergency department if your worse in any way. Referrals: [facility] Abraham,. [Clinic] - As per Instructions Stand Alone Forms: Work Excuse
[2017-05-20 03:04] VITALS: BP 124/80; PULSE 89; RESP 20; TEMP 98.2; O2SAT 97
== END 2017-05-20 03:03 | disposition home or self-care (01) ==
DX: J45.21 Mild intermittent asthma with (acute) exacerbation (principal); F17.200 Nicotine dependence, unspecified, uncomplicated

== ENCOUNTER 2017-05-27 16:07 | Emergency (ER) | payer OTHER ==
--- NOTE | 2017-05-27 17:00 | EDPHY ---
H & P Stated Complaint: L lateral lumbar pain Source: Patient Exam Limitations: No limitations - Personal History Current Tetanus/Diphtheria Vaccine: Yes Current Tetanus Diphtheria and Acellular Pertussis (TDAP): Yes Tetanus Vaccine Date: 2014 - Medical/Surgical History Hx Asthma: Yes Hx Chronic Respiratory Disease: No Hx Diabetes: No Hx Cardiac Disease: No Hx Renal Disease: No Hx Cirrhosis: No Hx Alcoholism: No Hx HIV/AIDS: No Hx Splenectomy or Spleen Trauma: No Other PMH: ASTHMA, ACNE - Social History Smoking Status: Heavy smoker Time Seen by Provider: 05/27/17 16:42 HPI/ROS: HPI: This is a 21-year-old male who presents with Chief Complaint: L lateral lumbar pain Location: Left lateral, posterior chest/thoracic Quality: Pain Duration: 1 and 0.5 hr prior to arrival Signs and Symptoms: No bleeding, no radiation, no numbness, no weakness, no tingling, no incontinence, no decreased range of motion, no swelling, no pain, no fever Timing: Acute Severity: 7 out of 10 Context: Patient reports that he is a smoker, recently switched to E cigarettes today. While he was using his E cigarettes, he started to cough and then experience sharp, constant, nonradiating pain described in the left lateral posterior chest/lower rib area. Pain is worsened with deep inspiration. Denies any wheezing/chest pain/shortness of breath/lower extremity edema. Patient did travel 5 hr for spring approximately 1 and half to 2 weeks ago. Denies fever/neck stiffness/body aches. Patient has not had any recent heavy lifting/strenuous activity. He has tried nothing for the symptoms. No history of kidney stones. Denies any urinary symptoms/hematuria/ testicular groin pain. Modifying Factors: None Comment: ROS: see HPI Constitutional: No fever, no chills, no weight loss Eyes: No blurred vision Respiratory: No shortness of breath, no cough Cardiovascular: No chest pain Gastrointestinal: No nausea, no vomiting no diarrhea Genitourinary: No dysuria Extremities: No myalgias Neurologic: No weakness, no numbness Skin: No rashes Hematologic: No bruising, no bleeding MEDICAL/SURGICAL/SOCIAL HISTORY: Medical history: Asthma, acne Surgical history: Denies Social history: [employer] student. Family history noncontributory. CONSTITUTIONAL: Extremely well-appearing young adult male, awake and alert, no obvious distress HEENT: Atraumatic and normocephalic. NECK: supple, no midline tenderness, flexion 45 degrees, extension 45 degrees, right and left lateral flexion 45 degrees. No meningismus. Cardiovascular: Normal S1/S2, regular rate, regular rhythm, without murmur rub or gallop. PULMONARY/CHEST: Symmetrical and reproducible left lower posterior rib tenderness. no crepitus. Clear to auscultation bilaterally. Good air movement. No accessory muscle usage. ABDOMEN: Soft, nondistended, nontender, no CVAT. PELVIC: no pain with rocking; bilateral hips flexion 125 degrees, extension 30 degrees, with no pain internal rotation and no pain external rotation. BACK: No midline tenderness, no paraspinous spasm, deep tendon reflexes 2/2, no pain with straight leg raise, No foot drop. Achilles reflexes are equal bilaterally. Able to walk on heels and toes without difficulty. EXTREMITIES: 2/2 pulses, strength 5/5, DIP/PIP/MCP flexion/extension intact with good light touch sensation. no deformities, no clubbing, no cyanosis or edema. NEUROLOGICAL: no focal neuro deficits. GCS 15. Light touch sensation intact. SKIN: Warm and dry, no erythema. no rash. Good capillary refill. (Estephania Crane) Constitutional: Initial Vital Signs Temperature (C) 36.7 C 05/27/17 16:19 Heart Rate 78 05/27/17 16:19 Respiratory Rate 16 05/27/17 16:19 Blood Pressure 135/66 H 05/27/17 16:19 O2 Sat (%) 96 05/27/17 16:19 O2 Delivery Mode Room Air Allergies/Adverse Reactions: No Known Allergies Allergy (Verified 05/27/17 16:17) Home Medications: Medication Instructions Recorded Doxycycline Hyclate 05/20/17 Albuterol Sulfate [Proair Hfa] 1 - 2 puffs IH Q4 PRN #1 [id number].[email or web address] 05/27/17 Medical Decision Making - Diagnostics Imaging Results: Imaging Impressions Chest X-Ray 05/27/17 17:04 Impression: Possible airways disease. Is there any wheezing? ED Course/Re-evaluation: The patient was evaluated and managed by the physician's itinerant teacher assistant. My cosignature indicates that I reviewed the chart and I agree with the findings and plan of care as documented. I am the secondary supervising physician. (Celina Lott) Chest x-ray, urinalysis, oral medications ordered Vital signs reviewed upon arrival in stable. No hypoxia/respiratory distress/ wheezing. Well's Criteria Score: 1. Active Cancer: No 2. Bedridden >3 days recently: No 3. Major surgery within 4 weeks: No 4. Calf swelling >3 cm: No 5. Collateral superficial veins: No 6. Entire leg swollen: No 7. Localized tenderness along venous system: No 8. Pitting edema to symptomatic leg: No 9: Paralysis, paresis or recent immobilization: No 10: Previous DVT: No 11: Alternative diagnosis as or more likely: Yes Total Score:1 1742: Urinalysis shows no blood or signs of infection. Doubt kidney stone. CXR: Possible airways disease. No signs of effusion/opacity/pneumothorax. Reassessed patient who reports moderate relief of symptoms. Given Albuterol inhaler. Advised to stop smoking. This patient was seen under the supervision of my secondary supervising physician. I evaluated care for this patient independently. (Estephania Crane) Differential Diagnosis: Flank pain including but not limited to musculoskeletal causes, kidney stone, pyelonephritis, shingles, and intra-abdominal causes such as diverticulitis and appendicitis. (Estephania Crane) - Data Points Laboratory Results: 05/27/17 17:30 Urine Color YELLOW Urine Appearance CLEAR Urine pH 6.0 (5.0-7.5) Ur Specific [place] 1.019 (1.002-1.030) Urine Protein NEGATIVE (NEGATIVE) Urine Ketones NEGATIVE (NEGATIVE) Urine Blood NEGATIVE (NEGATIVE) Urine Nitrate NEGATIVE (NEGATIVE) Urine Bilirubin NEGATIVE (NEGATIVE) Urine Urobilinogen NEGATIVE EU EU (0.2-1.0) Ur Leukocyte Esterase NEGATIVE (NEGATIVE) Urine Glucose NEGATIVE (NEGATIVE) Medications Given: Discontinued Medications Cyclobenzaprine HCl (Flexeril) 10 mg PO EDNOW ONE Stop: 05/27/17 17:05 Last Admin: 05/27/17 17:26 Dose: 10 mg Ibuprofen (Motrin) 800 mg PO EDNOW ONE Stop: 05/27/17 17:05 Last Admin: 05/27/17 17:27 Dose: 800 mg Departure - Departure Disposition: Home, Routine, Self-Care Clinical Impression: Reactive airway disease that is not asthma Condition: Good Instructions: Albuterol (By breathing), Reactive Airways Disease (ED) Additional Instructions: Please stop smoking. Chest x-ray does not show any signs of pneumonia/collapsed lung. It does show reactive airway disease that can be caused from smoking. Urine sample was normal. Use albuterol inhaler every 4 hr as needed for shortness of breath or wheezing. Take Tylenol 650 mg every 8 hr and/or ibuprofen 600 mg every 8 hr as needed for pain. Return to the ER immediately if you experience fevers/chills, shortness of breath, abdominal pain, inability to tolerate oral intake, or any other symptoms that concern you. Referrals: [facility],. [Clinic] - As per Instructions Prescriptions: Albuterol Sulfate [Proair Hfa] 1 - 2 puffs IH Q4 PRN #1 hfa.aer.ad PRN Reason: Short Of Breath/Dyspnea
[2017-05-27] MEDS ORDERED: CYCLOBENZAPRINE 10 MG TAB PO ONE (17:04)
[2017-05-27] MEDS ORDERED: IBUPROFEN 800 MG TAB PO ONE (17:04)
[2017-05-27] MEDS ORDERED: IBUPROFEN 200 MG TAB PO ONE (17:22)
[2017-05-27] MEDS ORDERED: IBUPROFEN 600 MG TAB PO ONE (17:23)
[2017-05-27 18:37] VITALS: BP 135/70
== END 2017-05-27 18:38 | disposition home or self-care (01) ==
DX: R07.9 Chest pain, unspecified (principal); F17.200 Nicotine dependence, unspecified, uncomplicated; J45.909 Unspecified asthma, uncomplicated

== ENCOUNTER 2017-11-17 12:16 | Emergency (ER) | payer OTHER ==
--- NOTE | 2017-11-17 13:29 | EDPHY ---
General Time Seen by Provider: 11/17/17 13:18 Narrative: CHIEF COMPLAINT: cough, "I think it's the flu" HISTORY OF PRESENT ILLNESS: Patient presents with complaints of cough and possible flu. He complains of 3 days history of cough with occasional body aches. He has no headache, sore throat, nausea, vomiting, abdominal pain or fever. His roommates all have these similar complaints. He has no chest pain. No shortness of breath. No wheezing although he does have asthma. He has no abdominal complaints. No urinary complaints. Symptoms are worse at night when he lays down. There is somewhat better when he sits up. There is minimal improvement with over-the- counter dextromethorphan and Tylenol. He has not been taking any anti- inflammatories. No other associated complaints or modifying factors. REVIEW OF SYSTEMS: 10 systems were reviewed and negative with the exception of the elements mentioned in the history of present illness. PCP: None SPECIALISTS: None PAST MEDICAL HISTORY: Asthma PAST SURGICAL HISTORY: No surgical SOCIAL HISTORY: Nonsmoker. [employer] student. Originally from [facility] FAMILY HISTORY: Noncontributory EXAMINATION: General Appearance: Alert, no distress. Well appearing. Ambulatory and conversing in full sentences. Head: normocephalic, atraumatic Eyes: Pupils equal and round, no conjunctival pallor or injection ENT, Mouth: Mucous membranes moist. Midline uvula with airway widely patent. No trismus. No erythema or edema. Neck: Normal inspection, supple, non-tender Respiratory: Mild rhonchi. No wheezing. No crackles. No diminishment or consolidation. No retractions or distress per Cardiovascular: Regular rate and rhythm Gastrointestinal: Abdomen is soft and nontender Neurological: A&O, nonfocal, normal gait Skin: Warm and dry, no rash. No petechiae or purpura Extremities: Nontender, no pedal edema Psychiatric: Mood and affect normal DIFFERENTIAL DIAGNOSES: Including but not limited to viral bronchitis, bacterial bronchitis, pneumonia, asthma exacerbation, influenza, RSV, bronchiolitis, PE MDM: 1:20 p.m. Cough with no evidence ammonia on chest x-ray. His history examination suggest a viral bronchitis with presence of asthma. His vital signs are within normal limits. He is in no acute distress. I do not feel he has enough symptoms to warrant flu test or further testing here. I do feel it is reasonable to treat him with short course of steroid burst, anti-inflammatories and cough medication. We discussed strict ED precautions for any chest pain, shortness of breath, fever, neck pain or stiffness or worsening symptoms. He is comfortable this as well. He is well-appearing and discharged home stable condition. SUPERVISION: This patient was independently evaluated without direct involvement of or examination by the attending physician. CONSULTATION: None - Diagnostics Imaging Results: Imaging Impressions Chest X-Ray 11/17/17 12:22 Impression: There is no focal infiltrate, or substantial change from 05/27/2017. - History Smoking Status: Heavy smoker - Objective Vital Signs: Initial Vital Signs Temperature (C) 97.7 F 11/17/17 12:20 Heart Rate 81 11/17/17 12:20 Respiratory Rate 16 11/17/17 12:20 Blood Pressure 155/80 H 11/17/17 12:20 O2 Sat (%) 95 11/17/17 12:20 O2 Delivery Mode Room Air Allergies/Adverse Reactions: No Known Allergies Allergy (Verified 05/27/17 16:17) Home Medications: Medication Instructions Recorded Benzonatate [Tessalon Pearles (RX)] 100 mg PO Q8 PRN #15 cap 11/17/17 Dexamethasone [Decadron 4 MG (*)] 8 mg PO DAILY #4 tab 11/17/17 Departure - Departure Disposition: Home, Routine, Self-Care Clinical Impression: Acute bronchitis Qualifiers: Bronchitis organism: unspecified organism Qualified Code(s): J20.9 - Acute bronchitis, unspecified Asthma Qualifiers: Asthma severity: mild Asthma persistence: intermittent Asthma complication type : with acute exacerbation Qualified Code(s): J45.21 - Mild intermittent asthma with (acute) exacerbation Condition: Good Instructions: Acute Bronchitis (ED), Acute Cough (ED) Additional Instructions: 1. Continue to use your albuterol inhaler as needed as previously prescribed 2. Decadron medication as prescribed, 1 dose today and 1 dose tomorrow 3. Cough medication as prescribed as needed. Do not combine with alcohol or marijuana 4. [id number] ibuprofen 600 mg every 8 hr for the next 5-7 days 5. ED precautions for chest pain, shortness of breath, worsening symptoms, fever , neck pain or stiffness, headache Referrals: Physician,Emergency Dept, [Medical Doctor] - As per Instructions Yasmin Lanza MD [Medical Doctor] - As per Instructions Stand Alone Forms: School Excuse Prescriptions: Benzonatate [Tessalon Pearles (RX)] 100 mg PO Q8 PRN #15 cap PRN Reason: Cough, Mild Dexamethasone [Decadron 4 MG (*)] 8 mg PO DAILY #4 tab
[2017-11-17 13:44] VITALS: BP 117/70
== END 2017-11-17 13:44 | disposition home or self-care (01) ==
DX: J45.21 Mild intermittent asthma with (acute) exacerbation (principal); J20.9 Acute bronchitis, unspecified

== ENCOUNTER 2018-03-23 23:40 | Emergency (ER) | payer OTHER ==
[2018-03-24] MEDS ORDERED: IPRATROPIUM/ALBUTEROL 3 ML DEYVIAL IH ONE (00:07)
[2018-03-24] MEDS ORDERED: IBUPROFEN 600 MG TAB PO ONE (00:07)
--- NOTE | 2018-03-24 00:07 | EDPHY ---
H & P Stated Complaint: Generalized body aches, chills, fatigue, cough Time Seen by Provider: 03/23/18 23:58 HPI/ROS: Chief Complaint: Cough, chills, fatigue HPI: 22-year-old male presenting with 2 days of dry cough, fatigue and chills. Patient states that hurts in the left chest when he coughs. Does not hurt to take a deep breath. Cough is nonproductive. Has had chills at home. Has not checked his temperature. No nausea or vomiting. No headache. He has not taken any medicine. ROS: 10 systems were reviewed and were negative except those elements noted in the HPI. PMH: Denies Social History: Positive smoking Family History: non-contributory Physical Exam: Gen: Awake, Alert, No Distress HEENT: Nose: no rhinorrhea Eyes: PERRLA, EOMI Mouth: Moist mucosa Neck: Supple, no JVD Chest: nontender, diffuse expiratory wheeze, no focal rales or rhonchi Heart: S1, S2 normal, no murmur Abd: Soft, non-tender, no guarding Back: no CVA tenderness, no midline tenderness Ext: no edema, non-tender Skin: no rash Neuro: CN II-XII intact, Sensation grossly intact, Strength 5/5 in bilateral upper and lower extremities - Personal History Current Tetanus Diphtheria and Acellular Pertussis (TDAP): Yes Tetanus Vaccine Date: 2014 - Medical/Surgical History Hx Asthma: Yes Hx Chronic Respiratory Disease: No Hx Diabetes: No Hx Cardiac Disease: No Hx Renal Disease: No Hx Cirrhosis: No Hx Alcoholism: No Hx HIV/AIDS: No Hx Splenectomy or Spleen Trauma: No Other PMH: ASTHMA - Social History Smoking Status: Heavy smoker Constitutional: Initial Vital Signs Temperature (C) 37.6 C 03/23/18 23:44 Heart Rate 128 H 03/23/18 23:44 Respiratory Rate 20 03/23/18 23:44 Blood Pressure 126/74 H 03/23/18 23:44 O2 Sat (%) 94 03/23/18 23:44 O2 Delivery Mode Room Air Allergies/Adverse Reactions: No Known Allergies Allergy (Verified 03/23/18 23:44) Medical Decision Making - Diagnostics Imaging Results: Chest x-ray is negative and unchanged from November 2017. This is my interpretation. Imaging: I viewed and interpreted images myself ED Course/Re-evaluation: 22-year-old male with fatigue and cough consistent with bronchitis. Diffuse expiratory wheezing. He is a smoker. No infiltrate on chest x-ray. Will give DuoNeb and reassess. Chest x-ray is negative. Patient is improved after DuoNeb. No further cough. He is feeling better after ibuprofen. Heart rate has improved. He is resting comfortably. Will discharge with albuterol inhaler, follow up with student [facility]. - Data Points Medications Given: Discontinued Medications Albuterol/Ipratropium (Duoneb) 3 ml IH EDNOW ONE Stop: 03/24/18 00:08 Last Admin: 03/24/18 00:16 Dose: 3 ml Ibuprofen (Motrin) 600 mg PO EDNOW ONE Stop: 03/24/18 00:08 Last Admin: 03/24/18 00:16 Dose: 600 mg Departure - Departure Disposition: Home, Routine, Self-Care Clinical Impression: Bronchitis Condition: Good Instructions: Acute Bronchitis (ED), Albuterol (By breathing) Additional Instructions: You may use the inhaler 2 puffs every 4 hr as needed for cough or wheeze. Always use the inhaler with a spacer. Follow up with [facility] in 2-3 days for further evaluation. Referrals: [facility],. [Clinic] - As per Instructions
[2018-03-24] MEDS ORDERED: ALBUTEROL INH PREPACK MDI TAKEHOME ONE (01:06)
[2018-03-24 01:19] VITALS: BP 120/67
== END 2018-03-24 01:18 | disposition home or self-care (01) ==
DX: J40 Bronchitis, not specified as acute or chronic (principal)

== ENCOUNTER 2018-03-26 22:43 | Emergency (ER) | payer OTHER ==
--- NOTE | 2018-03-26 23:24 | EDPHY ---
H & P Stated Complaint: coughing up blood Time Seen by Provider: 03/26/18 23:01 HPI/ROS: HPI The patient presents with hemoptysis which occurred about 1 hr prior to arrival while patient was in the shower. He was coughing and then noticed he was spitting up some blood. He was not sure if it was coming from his nose or his throat. He was seen in the ER 3 days ago and was diagnosed with bronchitis, he has been using inhalers and he says his symptoms have generally improved with this. He had a chest x-ray at that time which was unremarkable. He has not had any ongoing fevers. He has no prior history of hemoptysis. He is not taking any anticoagulants. REVIEW OF SYSTEMS 10 systems were reviewed and negative with the exception of the elements mentioned in the history of present illness. PMHx: Asthma, recent diagnosis of bronchitis just a few days ago Soc Hx: College student, smokes cigarettes PHYSICAL General Appearance: Alert, no distress Eyes: Pupils equal and round no pallor or injection ENT, Mouth: Mucous membranes moist, posterior pharynx is unremarkable, both nares demonstrate no active bleeding Respiratory: There are no retractions, lungs are clear to auscultation Cardiovascular: Regular rate and rhythm Gastrointestinal: Abdomen is soft and non-tender, no masses, bowel sounds normal Neurological: A&O, moves all extremities Skin: Warm and dry, no rashes Musculoskeletal: Neck is supple non tender Extremities: symmetrical, full range of motion Psychiatric: Patient is oriented X 3, there is no agitation Source: Patient Exam Limitations: No limitations - Personal History Current Tetanus Diphtheria and Acellular Pertussis (TDAP): Yes Tetanus Vaccine Date: 2014 - Medical/Surgical History Hx Asthma: Yes Hx Chronic Respiratory Disease: No Hx Diabetes: No Hx Cardiac Disease: No Hx Renal Disease: No Hx Cirrhosis: No Hx Alcoholism: No Hx HIV/AIDS: No Hx Splenectomy or Spleen Trauma: No Other PMH: ASTHMA - Social History Smoking Status: Heavy smoker Constitutional: Initial Vital Signs Temperature (C) 36.6 C 03/26/18 22:52 Heart Rate 91 03/26/18 22:52 Respiratory Rate 16 03/26/18 22:52 Blood Pressure 117/73 03/26/18 22:52 O2 Sat (%) 96 03/26/18 22:52 O2 Delivery Mode Room Air Allergies/Adverse Reactions: No Known Allergies Allergy (Verified 03/23/18 23:44) Home Medications: Medication Instructions Recorded Albuterol 03/26/18 Medical Decision Making - Diagnostics Imaging Results: Chest x-ray two views demonstrates no infiltrate, unchanged from prior chest x- ray a few days ago. Imaging: I viewed and interpreted images myself Differential Diagnosis: 22-year-old male presents from home with possible hemoptysis while in the shower today. Not sure if he had epistaxis. Symptoms have now completely resolved. On arrival, patient has normal vital signs and is well-appearing. Lungs sound clear. Differential diagnosis includes acute epistaxis, blood tinged sputum from lung infection or bronchitis. Chest x-ray was performed and unremarkable. He felt well enough to go home and was discharged. He has follow-up with the primary care doctor in 2 days. Departure - Departure Disposition: Home, Routine, Self-Care Clinical Impression: Acute bronchitis Qualifiers: Bronchitis organism: unspecified organism Qualified Code(s): J20.9 - Acute bronchitis, unspecified Condition: Good Instructions: Acute Bronchitis (ED) Additional Instructions: You may want to use a humidifier at home. You can put some Vaseline inside of your nostrils to help with dryness. Please continue your current treatments and follow up with your primary care doctor on Thursday. Referrals: NONE *PRIMARY CARE P,. [Primary Care Provider] - As per Instructions
[2018-03-27 00:41] VITALS: BP 133/67
== END 2018-03-27 00:39 | disposition home or self-care (01) ==
DX: J20.9 Acute bronchitis, unspecified (principal); J45.909 Unspecified asthma, uncomplicated; F17.200 Nicotine dependence, unspecified, uncomplicated

== ENCOUNTER 2018-06-20 19:03 | Emergency (ER) | payer OTHER ==
[2018-06-20 19:12] VITALS: BP 122/86
--- NOTE | 2018-06-20 19:31 | EDPHY ---
H & P Stated Complaint: Body aches, fatigue, recently stopped smoking, concerned for DM Time Seen by Provider: 06/20/18 19:22 HPI/ROS: CHIEF COMPLAINT: Want to get checked for diabetes HISTORY OF PRESENT ILLNESS: Patient is a 22-year-old man from [facility] who states that he stopped smoking a week ago and since then has had trouble sleeping and feels like he has to get up to go to the bathroom frequently and is becoming fatigued. He does not have to urinate frequently during the day. No dysuria. No hematuria. No body aches or chills. No fevers sore throat. No GI symptoms. No headache. He spoke with his doctor in [facility] who recommended he get checked for diabetes. He does have a history of anxiety as well. He is not currently on any medications. Severity: Mild Modifying factors: None REVIEW OF SYSTEMS: Constitutional: denies: chills, fever, recent illness, recent injury EENTM: denies: blurred vision, double vision, nose congestion Respiratory: denies: cough, shortness of breath Cardiac: denies: chest pain, irregular heart rate, lightheadedness, palpitations Gastrointestinal/Abdominal: denies: abdominal pain, diarrhea, nausea, vomiting, blood streaked stools Genitourinary: See HPI denies: dysuria, frequency, hematuria, pain Musculoskeletal: denies: joint pain, muscle pain Skin: denies: lesions, rash, jaundice, bruising Neurological: denies: headache, numbness, paresthesia, tingling, dizziness, weakness Hematologic/Lymphatic: denies: blood clots, easy bleeding, easy bruising Immunologic/allergic: denies: HIV/AIDS, transplant 10 systems reviewed and negative except as noted EXAM: GENERAL: Well-appearing, well-nourished and in no acute distress. HEAD: Atraumatic, normocephalic. EYES: Pupils equal round and reactive to light, extraocular movements intact, sclera anicteric, conjunctiva are normal. ENT: TMs normal, nares patent, oropharynx clear without exudates. Moist mucous membranes. NECK: Normal range of motion, supple without lymphadenopathy or JVD. LUNGS: Breath sounds clear to auscultation bilaterally and equal. No wheezes rales or rhonchi. HEART: Regular rate and rhythm without murmurs, rubs or gallops. ABDOMEN: Soft, nontender, normoactive bowel sounds. No guarding, no rebound. No masses appreciated. BACK: No CVA tenderness, no spinal tenderness, step-offs or deformities EXTREMITIES: Normal range of motion, no pitting or edema. No clubbing or cyanosis. NEUROLOGICAL: Cranial nerves II through XII grossly intact. Normal speech, normal gait. 5/5 strength, normal movement in all extremities, normal sensation , normal reflexes PSYCH: Normal mood, normal affect. SKIN: Warm, dry, normal turgor, no visible rashes or lesions. Source: Patient Exam Limitations: No limitations - Personal History Current Tetanus Diphtheria and Acellular Pertussis (TDAP): Yes Tetanus Vaccine Date: 2014 - Medical/Surgical History Hx Asthma: Yes Hx Chronic Respiratory Disease: No Hx Diabetes: No Hx Cardiac Disease: No Hx Renal Disease: No Hx Cirrhosis: No Hx Alcoholism: No Hx HIV/AIDS: No Hx Splenectomy or Spleen Trauma: No Other PMH: ASTHMA - Family History Significant Family History: No pertinent family hx - Social History Smoking Status: Heavy smoker Alcohol Use: Sober Drug Use: None Constitutional: Initial Vital Signs Temperature (C) 36.5 C 06/20/18 19:11 Heart Rate 65 06/20/18 19:11 Respiratory Rate 19 06/20/18 19:11 Blood Pressure 122/86 H 06/20/18 19:11 O2 Sat (%) 97 06/20/18 19:11 O2 Delivery Mode Room Air Allergies/Adverse Reactions: No Known Allergies Allergy (Verified 06/20/18 19:10) Home Medications: Medication Instructions Recorded Albuterol 03/26/18 Zolpidem Tartrate [Ambien Cr] 12.5 mg PO HS #10 tab.mphase 06/20/18 Medical Decision Making ED Course/Re-evaluation: Patient is currently asymptomatic. He is in the room texting on his phone. He only has symptoms at night when he has trouble sleeping and feels like he has to urinate frequently. No pain or dysuria. No hematuria. No fevers or flank pain. He came here to get checked for diabetes. Will run a fingerstick blood glucose but advised him to follow up with his clinic for hemoglobin A1c testing. Will also prescribe him short course of Ambien for sleep. Differential Diagnosis: Partial list of the Differential diagnosis considered include but were not limited to; insomnia, anxiety, urinary tract infection, diabetes and although unlikely based on the history and physical exam, I also considered prostate hypertrophy, kidney stone. I discussed these differential diagnoses and the plan with the patient as well as the usual and expected course. The patient understands that the diagnosis is provisional and that in medicine we are not always correct and that further workup is often warranted. Usual and customary warnings were given. All of the patient's questions were answered. The patient was instructed to return to the emergency department should the symptoms at all worsen or return, otherwise to followup with the physician as we discussed. - Data Points Laboratory Results: 06/20/18 20:00 POC Glucose 88 mg/dL mg/dL (70-100) Point of Care Test Results: Chemistry 06/20/18 20:00 POC Glucose 88 mg/dL mg/dL (70-100) Departure - Departure Disposition: Home, Routine, Self-Care Clinical Impression: Anxiety Insomnia Qualifiers: Insomnia type: unspecified Qualified Code(s): G47.00 - Insomnia, unspecified Condition: Fair Instructions: Insomnia (ED) Additional Instructions: Follow-up at the your Clinic for further diabetes testing. Referrals: NONE *PRIMARY CARE P,. [Primary Care Provider] - As per Instructions [facility] [[facility]] - 2-3 days, call for appt. Prescriptions: Zolpidem Tartrate [Ambien Cr] 12.5 mg PO HS #10 tab.mphase
== END 2018-06-20 20:08 | disposition home or self-care (01) ==
DX: F41.9 Anxiety disorder, unspecified (principal); G47.00 Insomnia, unspecified